=== PATIENT | female | born 1995 | race Caucasian/White ===

== ENCOUNTER 2024-03-05 11:42 | Outpatient (CLI) | payer SELFPAY | END 2024-03-05 11:43 | disposition home or self-care (01) | LOC: NFLDREF 11:43 | PROVIDERS: Visit Provider Family Medicine | DX: R39.9 Unspecified symptoms and signs involving the genitourinary system (principal); N39.0 Urinary tract infection, site not specified | CPT/HCPCS: 87086 ==

== ENCOUNTER 2024-11-02 16:33 | Outpatient (CLI) | payer OTHER, SELFPAY ==
[2024-11-04 02:44] LABS: HPV Source Cervix
[2024-11-04 17:28] LABS: HPV Genotype 16 by TMA Not Detected; HPV Genotype 18/45 by TMA Not Detected
[2024-11-18 14:39] LABS: Pap Test Reviewed by Path Done
== END 2024-11-02 16:34 | disposition home or self-care (01) ==
PROVIDERS: PCP Family Medicine; Visit Provider Physician Assistant
DX: Z12.4 Encounter for screening for malignant neoplasm of cervix (principal); Z11.51 Encounter for screening for human papillomavirus (HPV); Z11.3 Encounter for screening for infections with a predominantly sexual mode of transmission
CPT/HCPCS: 87624; 87625; 88141; 88142

== ENCOUNTER 2024-11-03 10:46 | Outpatient (CLI) | payer OTHER, SELFPAY | END 2024-11-03 10:47 | disposition home or self-care (01) | LOC: NFLDREF 11-05 17:24 | PROVIDERS: PCP Family Medicine; Referring Provider Family Medicine; Visit Provider Physician Assistant | DX: Z00.00 Encounter for general adult medical examination without abnormal findings (principal); Z13.6 Encounter for screening for cardiovascular disorders; Z13.1 Encounter for screening for diabetes mellitus | CPT/HCPCS: 80061; 82947 ==

== ENCOUNTER 2025-04-01 09:58 | Outpatient (CLI) | payer OTHER, SELFPAY | END 2025-04-01 09:59 | disposition home or self-care (01) | PROVIDERS: PCP Family Medicine; Visit Provider Family Medicine | DX: R19.7 Diarrhea, unspecified (principal) | CPT/HCPCS: 80053; 82784; 86231; 86258; 86364; 87045; 87046; 87177; 87209; 87427; 87493 ==